=== PATIENT | male | born 1950 | race Caucasian/White ===

== ENCOUNTER 2024-07-02 01:31 | Inpatient (IN) | payer OTHER, MEDICAID, MEDICARE ==
[~2024-07-02] VITALS: Ht 170.2 cm; Wt 66.7 kg
[2024-07-02] MEDS: SODIUM CHLORIDE 0.9% 1,000 ML IV ONE (02:30)
[2024-07-02] MEDS: METHYLPREDNISOLONE SOD SUCC 125MG/2ML (ACT-O-VIAL) IV STA (02:38)
[2024-07-02 02:43] LABS: HEMATOCRIT. 50.3 % (42.0-52.0); HEMOGLOBIN. 16.8 g/dL (14.0-18.0); MEAN CORPUSCULAR HEMOGLOBIN 32.1 pg (28.0-32.0); MEAN CORPUSCULAR HGB CONC 33.3 g/dL (31.0-37.0); MEAN CORPUSCULAR VOLUME 96.3 fL (80.0-94.0); MEAN PLATELET VOLUME 8.1 fl (7.4-10.4); PLATELET 181 x1000/uL (130-400); RED BLOOD CELL COUNT 5.22 mill/uL (4.7-6.1); RED CELL DISTRIBUTION WIDTH 14.2 % (11.6-14.6); WHITE BLOOD COUNT 9.8 x1000/uL (4.5-11.0)
[2024-07-02] MEDS: MAGNESIUM 2 G PREMIX 50 ML IV ONE (02:44)
[2024-07-02 02:51] LABS: CHLORIDE 98 mEq/L (98-107); POTASSIUM 4.6 mEq/L (3.5-5.1); SODIUM 133 mEq/L (136-145)
[2024-07-02 02:52] LABS: CARBON DIOXIDE 27 mEq/L (21-32)
[2024-07-02 02:54] LABS: DIFFERENTIAL COMMENT 1
[2024-07-02 02:57] LABS: CREATININE 2.1 mg/dL (0.6-1.3); GLUCOSE 95 mg/dL (70-105); UREA NITROGEN BLOOD 35 mg/dL (9-23)
[2024-07-02 02:59] LABS: TROPONIN I HIGH SENSITIVITY 8 ng/L (3.0-53)
[2024-07-02 03:07] LABS: LACTIC ACID 3.5 mmol/L (0.4-2.0)
[2024-07-02] MEDS ORDERED: SODIUM CHLORIDE 0.9% 1000ML BAG (SEPSIS BOLUS) IV ONE (03:15)
[2024-07-02 03:20] VITALS: PULSE 95; RESP 24; O2SAT 94
[2024-07-02] MEDS: IPRATROPIUM BROMIDE (0.02%) 0.5MG/2.5ML NEB HHN STA (03:23)
[2024-07-02] MEDS: ALBUTEROL (0.083%) 2.5MG/3ML NEB HHN SCH (03:24)
[2024-07-02] MEDS: SODIUM CHLORIDE 0.9% IV SCH (03:28)
[2024-07-02] MEDS: CEFTRIAXONE 1GM/50ML 50 ML IV NR (03:38)
[2024-07-02 03:40] LABS: BG BASE EXCESS -1.6 mmol/L (-2.0-3.0); BG CARBOXYHEMOGLOBIN 2.1 % (0.5-1.5); BG DEOXYHEMOGLOBIN 7.3 % (0.0-5.0); BG FRACTION INSPIRED OXYGEN 36; BG HCO3 ACT 20.8 mmol/L (21.0-28.0); BG METHEMOGLOBIN 0.1 % (0.5-1.5); BG OXYGEN SATURATION 92.5 % (94.0-98.0); BG OXYHEMOGLOBIN 90.5 % (94.0-98.0); BG PCO2 29.6 mmHg (35.0-48.0); BG PH 7.465 (7.350-7.450); BG PO2 60.6 mmHg (83.0-108.0); BG SAMPLE SITE RIGHT RADIAL; BG TOTAL HEMOGLOBIN 15.7 g/dL (13.5-17.5); BG VENT MODE NASAL CANNULA
[2024-07-02 03:48] VITALS: PULSE 93; RESP 27; O2SAT 95
[2024-07-02 03:54] LABS: PLATELET ESTIMATE NORMAL
[2024-07-02] MEDS: AZITHROMYCIN 500MG/250ML 250 ML IV NR (04:13)
[2024-07-02 04:20] VITALS: PULSE 94; RESP 28; O2SAT 95
[2024-07-02] MEDS ORDERED: ONDANSETRON HCL 4MG/2ML INJ IV PRN (18:45)
[2024-07-02] MEDS ORDERED: CLONIDINE 0.1MG TABLET PO PRN (18:45)
[2024-07-02] MEDS ORDERED: ACETAMINOPHEN 325MG TABLET PO PRN (18:45)
[2024-07-02] MEDS: METHYLPREDNISOLONE SOD SUCC 40MG/ML (ACT-O-VIAL) IV SCH (18:58)
[2024-07-02] MEDS: LEVOFLOXACIN 500MG PREMIX 100 ML IV SCH (19:46)
[2024-07-02] MEDS: IPRATROPIUM/ALBUTEROL 0.5-3(2.5)MG/3ML NEB HHN SCH (20:02)
[2024-07-02 20:04] VITALS: PULSE 100; RESP 20; O2SAT 94
[2024-07-02 20:32] LABS: HEMATOCRIT. 44.9 % (42.0-52.0); HEMOGLOBIN. 14.9 g/dL (14.0-18.0); MEAN CORPUSCULAR HGB CONC 33.2 g/dL (31.0-37.0); MEAN CORPUSCULAR VOLUME 96.3 fL (80.0-94.0); MEAN PLATELET VOLUME 8.3 fl (7.4-10.4); PLATELET 155 x1000/uL (130-400); RED BLOOD CELL COUNT 4.67 mill/uL (4.7-6.1); RED CELL DISTRIBUTION WIDTH 14.3 % (11.6-14.6)
[2024-07-02 20:35] LABS: DIFFERENTIAL COMMENT 1
[2024-07-02 20:37] LABS: POTASSIUM 4.1 mEq/L (3.5-5.1)
[2024-07-02 20:38] LABS: CALCIUM 8.2 mg/dL (8.7-10.4)
[2024-07-02 20:43] LABS: CREATININE 1.5 mg/dL (0.6-1.3)
[2024-07-02 20:55] LABS: PLATELET ESTIMATE NORMAL
[2024-07-02 21:04] LABS: INR 1.5; PROTHROMBIN TIME 16.3 sec (9.6-11.0)
[2024-07-02] MEDS: ENOXAPARIN 80MG/0.8ML SYR SUBCUT SCH (21:59)
[2024-07-03] VITALS (10 sets, daily range): BP systolic 84–124; BP diastolic 58–83; PULSE 79–110; RESP 16–28; TEMP 36.3624–36.72516; O2SAT 93–97
[2024-07-03] MEDS: SODIUM CHLORIDE 0.9% 1,000 ML IV NR ×2 (07:10→22:52)
[2024-07-03 08:01] LABS: HEMATOCRIT. 41.7 % (42.0-52.0); MEAN CORPUSCULAR HEMOGLOBIN 32.2 pg (28.0-32.0); MEAN CORPUSCULAR HGB CONC 33.5 g/dL (31.0-37.0); MEAN PLATELET VOLUME 8.8 fl (7.4-10.4); PLATELET 145 x1000/uL (130-400); RED BLOOD CELL COUNT 4.34 mill/uL (4.7-6.1); RED CELL DISTRIBUTION WIDTH 13.9 % (11.6-14.6); WHITE BLOOD COUNT 12.6 x1000/uL (4.5-11.0)
[2024-07-03 08:06] LABS: DIFFERENTIAL COMMENT 1
[2024-07-03 08:09] LABS: POTASSIUM 3.7 mEq/L (3.5-5.1)
[2024-07-03 08:10] LABS: CALCIUM 8.3 mg/dL (8.7-10.4)
[2024-07-03 08:15] LABS: CREATINE KINASE MB FRACTION 2.5 ng/mL (0.5-3.6)
[2024-07-03 08:15] LABS: CREATININE 1.3 mg/dL (0.6-1.3)
[2024-07-03 08:51] LABS: BG BASE EXCESS 0.2 mmol/L (-2.0-3.0); BG CARBOXYHEMOGLOBIN 0.7 % (0.5-1.5); BG DEOXYHEMOGLOBIN 4.2 % (0.0-5.0); BG FRACTION INSPIRED OXYGEN 36; BG HCO3 ACT 23.5 mmol/L (21.0-28.0); BG METHEMOGLOBIN 0.3 % (0.5-1.5); BG OXYGEN SATURATION 95.8 % (94.0-98.0); BG OXYHEMOGLOBIN 94.8 % (94.0-98.0); BG PCO2 34.1 mmHg (35.0-48.0); BG PH 7.456 (7.350-7.450); BG PO2 70.8 mmHg (83.0-108.0); BG SAMPLE SITE RIGHT RADIAL; BG TOTAL HEMOGLOBIN 14.8 g/dL (13.5-17.5); BG VENT MODE NASAL CANNULA
[2024-07-03] MEDS ORDERED: ENOXAPARIN 30MG/0.3ML SYR SUBCUT SCH (09:00)
[2024-07-03 09:51] LABS: PLATELET ESTIMATE NORMAL
[2024-07-03] MEDS: PIPERACILLIN/TAZO 3.375G/50ML 50 ML IV SCH ×2 (10:45→15:11)
[2024-07-03] MEDS: MONTELUKAST SODIUM 10MG TABLET PO SCH (18:21)
[2024-07-03] MEDS: DILTIAZEM HCL 5MG/ML 5ML VIAL IV NR (18:46)
[2024-07-03] MEDS: ENOXAPARIN 80MG/0.8ML SYR SUBCUT SCH (21:09)
[2024-07-03 22:31] LABS: CREATINE KINASE MB FRACTION 2.6 ng/mL (0.5-3.6)
[2024-07-03] MEDS: GUAIFENESIN 200MG/10ML SUGAR FREE UDC PO PRN (22:39)
[2024-07-04] VITALS (17 sets, daily range): BP systolic 83–122; BP diastolic 64–70; PULSE 66–100; RESP 18–26; TEMP 36.55848; O2SAT 7–99
[2024-07-04] MEDS: DILTIAZEM HCL 30MG TABLET PO SCH
[2024-07-04 00:38] LABS: CLARITY URINE CLOUDY (CLEAR); COLOR URINE YELLOW (YELLOW); GLUCOSE URINE NEGATIVE (NEGATIVE); KETONES URINE NEGATIVE (NEGATIVE); LEUKOCYTE ESTERASE URINE NEGATIVE (NEGATIVE); NITRITE URINE NEGATIVE (NEGATIVE); OCCULT BLOOD URINE 1+ (NEGATIVE); PH URINE 5.5 (4.5-8.0); PROTEIN URINE 2+ (NEGATIVE); SPECIFIC GRAVITY URINE 1.022 (1.005-1.030)
[2024-07-04] MEDS: ZOLPIDEM TARTRATE 5MG TABLET PO PRN (00:43)
[2024-07-04 00:52] LABS: *AMPHETAMINES SCREEN URINE NEGATIVE (NEGATIVE); *BARBITURATES SCREEN URINE NEGATIVE (NEGATIVE); *BENZODIAZEPINES SCREEN URINE NEGATIVE (NEGATIVE)
[2024-07-04 00:53] LABS: *COCAINE SCREEN URINE PRESUMPTIVE POSITIVE (NEGATIVE); CANNABINOID URINE SCREEN NEGATIVE (NEGATIVE); ECSTASY MDMA SCREEN URINE NEGATIVE (NEGATIVE); METHADONE URINE SCREEN NEGATIVE (NEGATIVE); OPIATES URINE SCREEN NEGATIVE (NEGATIVE); PHENCYCLIDINE URINE SCREEN NEGATIVE (NEGATIVE)
[2024-07-04 01:22] LABS: BACTERIA URINE 2+; RBC URINE NONE SEEN /hpf (0-2); SQUAMOUS EPITHELIAL CELL URINE 1+ /lpf (RARE/1+); URIC ACID CRYSTALS URINE 2+ /lpf; WBC URINE NONE SEEN /hpf (0-2)
[2024-07-04 11:10] LABS: HEMATOCRIT. 43.6 % (42.0-52.0); HEMOGLOBIN. 14.3 g/dL (14.0-18.0); MEAN CORPUSCULAR HEMOGLOBIN 31.3 pg (28.0-32.0); MEAN CORPUSCULAR HGB CONC 32.9 g/dL (31.0-37.0); MEAN CORPUSCULAR VOLUME 95.2 fL (80.0-94.0); MEAN PLATELET VOLUME 9.1 fl (7.4-10.4); PLATELET 139 x1000/uL (130-400); RED BLOOD CELL COUNT 4.58 mill/uL (4.7-6.1); RED CELL DISTRIBUTION WIDTH 14.3 % (11.6-14.6); WHITE BLOOD COUNT 18.3 x1000/uL (4.5-11.0)
[2024-07-04 11:20] LABS: DIFFERENTIAL COMMENT 1; POTASSIUM 3.2 mEq/L (3.5-5.1)
[2024-07-04 11:21] LABS: CALCIUM 8.8 mg/dL (8.7-10.4)
[2024-07-04 11:26] LABS: CREATININE 1.2 mg/dL (0.6-1.3)
[2024-07-04 11:29] LABS: LACTIC ACID 2.4 mmol/L (0.4-2.0)
[2024-07-04] MEDS: LORATADINE 10MG TABLET PO SCH (14:55)
[2024-07-04] MEDS: APIXABAN 5 MG TABLET PO SCH (14:55)
[2024-07-04 16:40] LABS: PLATELET ESTIMATE NORMAL
[2024-07-04] MEDS: FAMOTIDINE 20MG TABLET PO SCH (20:38)
[2024-07-05] VITALS (12 sets, daily range): BP systolic 89–144; BP diastolic 63–128; PULSE 55–80; RESP 18–29; TEMP 36.55848–36.83628; O2SAT 87–99
[2024-07-05 11:01] LABS: BG BASE EXCESS -2.7 mmol/L (-2.0-3.0); BG CARBOXYHEMOGLOBIN 0.6 % (0.5-1.5); BG DEOXYHEMOGLOBIN 3.7 % (0.0-5.0); BG FRACTION INSPIRED OXYGEN 36; BG METHEMOGLOBIN 0.3 % (0.5-1.5); BG OXYGEN SATURATION 96.3 % (94.0-98.0); BG OXYHEMOGLOBIN 95.4 % (94.0-98.0); BG PCO2 33.6 mmHg (35.0-48.0); BG PH 7.414 (7.350-7.450); BG PO2 80.5 mmHg (83.0-108.0); BG SAMPLE SITE RIGHT BRACHIAL; BG TOTAL HEMOGLOBIN 13.8 g/dL (13.5-17.5); BG VENT MODE NASAL CANNULA
[2024-07-05] MEDS ORDERED: BENA1TAB19 MT (13:47)
[2024-07-05] MEDS ORDERED: TAMS-11 PO (13:48)
[2024-07-05] MEDS ORDERED: TADA10TA PO (13:51)
[2024-07-05] MEDS ORDERED: ALBU18HF2 IH (13:51)
[2024-07-05] MEDS ORDERED: FLUT1BLS3 INH (13:51)
[2024-07-05] MEDS ORDERED: [UNRECOGNIZED DRUG - CODE] MM (13:51)
[2024-07-05] MEDS ORDERED: *PATIENT'S OWN MEDICATION STORAGE XX SCH (14:15)
[2024-07-05] MEDS ORDERED: ALBUTEROL PO (17:10)
[2024-07-05] MEDS ORDERED: FLUT1BLS3 IH (17:10)
[2024-07-05] MEDS ORDERED: ASPI-1497 PO (17:12)
[2024-07-05 18:26] LABS: HEMOGLOBIN. 13.3 g/dL (14.0-18.0); MEAN CORPUSCULAR HEMOGLOBIN 32.4 pg (28.0-32.0); MEAN CORPUSCULAR VOLUME 95.1 fL (80.0-94.0); MEAN PLATELET VOLUME 9.2 fl (7.4-10.4); PLATELET 128 x1000/uL (130-400); RED CELL DISTRIBUTION WIDTH 14.3 % (11.6-14.6); WHITE BLOOD COUNT 9.4 x1000/uL (4.5-11.0)
[2024-07-05 18:27] LABS: DIFFERENTIAL COMMENT 1
[2024-07-05 18:32] LABS: CHLORIDE 104 mEq/L (98-107); POTASSIUM 3.3 mEq/L (3.5-5.1); SODIUM 137 mEq/L (136-145)
[2024-07-05 18:33] LABS: CALCIUM 8.7 mg/dL (8.7-10.4); CARBON DIOXIDE 26 mEq/L (21-32)
[2024-07-05 18:38] LABS: CREATININE 1.2 mg/dL (0.6-1.3); GLUCOSE 174 mg/dL (70-105); UREA NITROGEN BLOOD 34 mg/dL (9-23)
[2024-07-05 18:40] LABS: ALANINE AMINOTRANSFERASE 38 IU/L (10-49); ALBUMIN 3.4 g/dL (3.2-4.8); ASPARTATE AMINOTRANSFERASE 32 IU/L (<34); BILIRUBIN TOTAL 0.5 mg/dL (0.1-1.0); PROTEIN TOTAL 5.8 g/dL (6.0-8.3)
[2024-07-05 23:02] LABS: PLATELET ESTIMATE SLIGHTLY DECREASED
[2024-07-06] VITALS (13 sets, daily range): BP systolic 98–117; BP diastolic 51–81; PULSE 48–84; RESP 13–26; TEMP 36.33624–36.72516; O2SAT 89–99
[2024-07-06] MEDS: THROAT LOZENGES-BENZOCAINE/MENTH/CETYLPYRD CL LOZENGES MM PRN (09:52)
[2024-07-06] MEDS ORDERED: LEVO-65 MT (10:47)
[2024-07-06] MEDS ORDERED: METH4TAB95 MT (10:47)
[2024-07-06] MEDS ORDERED: APIX5TAB PO (10:47)
[2024-07-06] MEDS ORDERED: DILT120T13 MT (10:47)
[2024-07-06] MEDS ORDERED: FLUT1DIS6 INH (10:49)
[2024-07-06] MEDS ORDERED: ALBU90AE INH (10:49)
[2024-07-07] MEDS ORDERED: METHYLPREDNISOLONE SOD SUCC 40MG/ML (ACT-O-VIAL) IV SCH (06:00)
== END 2024-07-06 21:25 | disposition home or self-care (01) | DRG 871 ==
LOC: ER 01:31 → MICUSO 05:36 → EDBEDREQSVC 20:29 → 5EST 07-03 09:04
PROVIDERS: ADMIT Internal Medicine; ATTEND Internal Medicine
DX: A41.9 Sepsis, unspecified organism (principal); J18.9 Pneumonia, unspecified organism; J96.01 Acute respiratory failure with hypoxia; J44.0 Chronic obstructive pulmonary disease with (acute) lower respiratory infection; E87.1 Hypo-osmolality and hyponatremia; I82.512 Chronic embolism and thrombosis of left femoral vein; J44.1 Chronic obstructive pulmonary disease with (acute) exacerbation; N17.9 Acute kidney failure, unspecified; I10 Essential (primary) hypertension; N40.0 Benign prostatic hyperplasia without lower urinary tract symptoms; R65.20 Severe sepsis without septic shock; Z20.822 Contact with and (suspected) exposure to COVID-19; F14.10 Cocaine abuse, uncomplicated; R79.89 Other specified abnormal findings of blood chemistry; J43.9 Emphysema, unspecified; Z86.711 Personal history of pulmonary embolism; Z87.891 Personal history of nicotine dependence; Z82.49 Family history of ischemic heart disease and other diseases of the circulatory system; Z82.5 Family history of asthma and other chronic lower respiratory diseases
CPT/HCPCS: 36415; 36600; 71045; 80048; 80053; 80305; 81003; 82375; 82553; 82805; 83605; 83880; 84145; 84484; 85025; 87070; 87426; 87804; 93005; 93306; 93970; 94640; 99291; J0456; J0696; J1650; J1956; J2543; J2919; J2920; J3475; J3490; J7030